=== PATIENT | female | born 1995 | race Caucasian/White ===

== ENCOUNTER 2020-11-13 19:52 | Emergency (ER) | payer OTHER ==
--- NOTE | 2020-11-13 20:17 | EDM.PDOC ---
ED HPI GENERAL MEDICAL PROBLEM - General Stated Complaint: UTI Time Seen by Provider: 11/13/20 20:17 Source of Information: Reports: Patient, RN, RN Notes Reviewed History Limitations: Reports: No Limitations - History of Present Illness INITIAL COMMENTS - FREE TEXT/NARRATIVE: Patient is a 25-year-old female who presents to ER with complaint of frequency and urgency, intermittent burning with urination. Patient states on Sunday she began noticing a foul odor to her urine, thought she was possibly dehydrated as she had not been drinking enough water. States she has been pushing fluids/water for the past 2 days, and today began having blood in the urine, frequency and urgency. Patient denies any fever chills, abdominal pain, back pain. Patient states she has began using a new body wash. Admits to amoxicillin allergy. States she has had 1 urinary tract infection in the past. Denies any chances of . Onset: Gradual - Related Data Allergies Allergy/AdvReac Type Severity Reaction Status Date / Time amoxicillin Allergy Other Verified 11/13/20 20:25 Home Meds: Home Meds Levonorgestrel-Ethin Estradiol [Orsythia-28 Tablet] 1 each PO ASDIRECTED 07/22/15 [History] ED ROS GENERAL - Review of Systems Review Of Systems: Comprehensive ROS is negative, except as noted in HPI. ED EXAM, RENAL/ - Physical Exam Exam: See Below Exam Limited By: No Limitations General Appearance: Alert, WD/WN, No Apparent Distress Eye Exam: Bilateral Eye: EOMI, Normal Inspection Ears: Normal External Exam, Hearing Grossly Normal Nose: Normal Inspection Throat/Mouth: Normal Inspection, Normal Voice, No Airway Compromise Head: Atraumatic, Normocephalic Neck: Normal Inspection, Supple, Non-Tender, Full Range of Motion Respiratory/Chest: No Respiratory Distress, Lungs Clear, Normal Breath Sounds, No Accessory Muscle Use, Chest Non-Tender Cardiovascular: Normal Peripheral Pulses, Regular Rate, Rhythm, No Edema, No Gallop, No JVD, No Murmur, No Rub GI/Abdominal: Normal Bowel Sounds, Soft, Non-Tender, No Organomegaly, No Distention (Female) Exam: Deferred Rectal (Female) Exam: Deferred Back Exam: Normal Inspection, Full Range of Motion. No: CVA Tenderness (L), CVA Tenderness (R) Extremities: Normal Inspection, Normal Range of Motion, Non-Tender, Normal Capillary Refill, No Pedal Edema Neurological: Alert, Oriented, CN II-XII Intact, Normal Cognition, Normal Gait, Normal Reflexes, No Motor/Sensory Deficits Psychiatric: Normal Affect, Normal Mood Skin Exam: Warm, Dry, Intact, Normal Color, No Rash Lymphatic: No Adenopathy Course - Vital Signs Last Recorded V/S: Last Vital Signs Temp 98.6 F 11/13/20 19:52 Pulse 96 11/13/20 19:52 Resp 16 11/13/20 19:52 BP 116/80 11/13/20 19:52 Pulse Ox 100 11/13/20 19:52 - Orders/Labs/Meds Orders: Active Orders 24 hr Category Date Time Status UA W/VALENTIN RFLX IF INDICATED [URIN] Stat Lab 11/13/20 20:20 Received Nitrofurantoin Murray/Macrocryst [Take Home: Nitrofur Med 11/13/20 20:41 Once Murray/Ma 100 MG, 2 Pack] 2 packet PO ONETIME ONE Labs: Laboratory Tests 11/13/20 11/13/20 Range/Units 20:20 20:20 Urine Color Red H (YELLOW) Urine Appearance Turbid H (CLEAR) Urine pH 5.0 (5.0-8.0) Ur Specific Hamilton 1.015 Urine Protein >=300 H (NEGATIVE) mg/dL Urine Glucose (UA) Negative (NEGATIVE) mg/dL Urine Ketones Trace H (NEGATIVE) mg/dL Urine Occult Blood Large H (NEGATIVE) Urine Nitrite Negative (NEGATIVE) Urine Bilirubin Moderate H (NEGATIVE) Urine Urobilinogen 1.0 (0.2) EU/dL Ur Leukocyte Esterase Large H (NEGATIVE) Urine RBC Packed H (NOT SEEN) /HPF Urine WBC 10-20 H (NOT SEEN) /HPF Ur Squamous Epith Cells Few H (NOT SEEN) /HPF Urine Bacteria Few H (NOT SEEN) /HPF Urine Mucus Few H (NOT SEEN) /LPF Urine HCG, Qual Negative (NEGATIVE) Departure - Departure Time of Disposition: 20:42 Disposition: Home, Self-Care 01 Condition: Good Clinical Impression: UTI, Urinary tract infectious disease UTI (urinary tract infection) Qualifiers: Urinary tract infection type: acute cystitis Hematuria presence: with hematuria Qualified Code(s): N30.01 - Acute cystitis with hematuria - Discharge Information *PRESCRIPTION DRUG MONITORING PROGRAM REVIEWED*: No *COPY OF PRESCRIPTION DRUG MONITORING REPORT IN PATIENT ADRIEL: No Instructions: Urinary Tract Infection, Adult, [id number] Referrals: PCP,Not In Area [Primary Care Provider] - Additional Instructions: Drink plenty of water May use Tylenol and/or ibuprofen as directed for pain Rx: Macrobid twice daily for 5 days If no improvement follow-up with your primary care provider turn to the ER Sepsis Event Note (ED) - Focused Exam Vital Signs: Vital Signs Temp Pulse Resp BP Pulse Ox 11/13/20 19:52 98.6 F 96 16 116/80 100 - My Orders Last 24 Hours: My Active Orders 11/13/20 20:20 UA W/VALENTIN RFLX IF INDICATED [URIN] Stat 11/13/20 20:41 Nitrofurantoin Murray/Macrocryst [Take Home: Nitrofur Murray/Ma 100 MG, 2 Pack] 2 packet PO ONETIME ONE - Assessment/Plan Last 24 Hours: My Active Orders 11/13/20 20:20 UA W/VALENTIN RFLX IF INDICATED [URIN] Stat 11/13/20 20:41 Nitrofurantoin Murray/Macrocryst [Take Home: Nitrofur Murray/Ma 100 MG, 2 Pack] 2 packet PO ONETIME ONE
[2020-11-13 20:26] VITALS: BP 116/80; PULSE 96
[2020-11-13] MEDS ORDERED: Take Home: Nitrofurantoin Monohydrate/Macrocrystalline 100 MG, 2 Cap Pack PO ONE (20:41)
== END 2020-11-13 21:02 | disposition home or self-care (01) ==
LOC: VM.ED 19:52
DX: N30.01 Acute cystitis with hematuria (principal); Z88.0 Allergy status to penicillin
CPT/HCPCS: 81001; 81025; 99283; A9270-GY